=== PATIENT | male | born 1955 | race Caucasian/White ===

== ENCOUNTER → 2016-09-16 | Outpatient (CLI) | payer OTHER ==
[~2016-09-16] MED LIST: AMBIEN10 MG PO; CARDURA4 M1 PO; PROAIR RESPICL90 MCG INH; SILDENAFIL20 MG PO; SINGULAIR PO
== END | disposition home or self-care (01) ==
LOC: CRAD 09:26
DX: K21.9 Gastro-esophageal reflux disease without esophagitis (principal); J18.9 Pneumonia, unspecified organism; J47.9 Bronchiectasis, uncomplicated
CPT/HCPCS: 74230; 92611

== ENCOUNTER → 2016-09-17 | Day surgery (SDC) | payer OTHER ==
--- NOTE | ~2016-09-17 | OR ---
Unit #: [id number] #: [id number] Patient: ISAIAS SHEFFIELD [id number] [address] [place], [place] [address] [id number] O MR#: [id number] NAME: ISAIAS SHEFFIELD ROOM: Date of Procedure: 09/17/2016 Admission Date: 09/17/2016 Surgeon: Jan Rdz M.D. : 1955 Attending Physician: Brooks Rdz Primary Care Physician: Irina Nunez A.P.R.N. OPERATIVE REPORT PROCEDURE PERFORMED Bronchoscopy with bronchoalveolar lavage of the right middle lobe and left lingular lobe. ANESTHESIA Per Anesthesiology. Benzocaine spray used, 2% Xylocaine jelly, 1% Xylocaine. DESCRIPTION OF PROCEDURE Bronchoscope was passed oropharyngeally without difficulty after obtaining informed consent, after anesthesia had given Versed and propofol. The patient tolerated the procedure very well. There were no acute issues. The vocal cords seemed to move symmetrically. There were some changes of chronic irritation on the vocal cords including excessive vascularization; however, they moved to midline and there was no any evidence of any endobronchial lesions. The bronchoscope was then passed in the trachea. Trachea showed signs of chronic bronchitis including a broken about midway down the trachea. There was no other evidence of endobronchial lesions. Bronchoscope was then passed into the right upper, right middle, right lower left upper, left lingular, and left lower lobes. The mucosa showed significant changes of chronic bronchitis with pitting hypertrophy of the rings, hypertrophy of the mucous glands, scattered secretions bilaterally which were thick, viscid, and non-purulent. The bronchoscope was then passed in the lingular lobe approximately 60 mL of sterile non-bacteriostatic saline was introduced at approximately was removed. The fluid was clear, slightly yellowish tinged, and foamy. Bronchoscope was then passed into the middle lobe a 90 mL of sterile non-bacteriostatic saline was introduced at about 30 mL was returned. This was clear fluid, which was foamy. Bronchoscope was then removed. The patient tolerated the procedure well. There were no acute complications. There were no limitations. Cultures will be sent off. The patient should be discharged home on scheduled albuterol and Atrovent inhalers. Thank you very much, please page me at [phone] if you have any questions. Dictated by... Marlen Bustamante/khris Unit #: [id number] #: [id number] Patient: ISAIAS SHEFFIELD TD: 09/17/2016 22:21 JOB #: [id number] OPERATIVE REPORT Page 1 of 1 X Brooks Rdz MD X PROCEDURE OPERATIVE NOTE
[2016-09-17 12:21] LABS: BODY FLUID SOURCE BRONCHIAL LAVAGE
[2016-09-17 12:24] LABS: BODY FLUID APPEARANCE HAZY
[2016-09-17 12:25] LABS: BODY FLUID APPEARANCE HAZY; BODY FLUID SOURCE BRONCHIAL LAVAGE
== END | disposition home or self-care (01) ==
LOC: COPS 08-30 08:30
PROVIDERS: Internal Medicine Pulmonary Disease
DX: J47.9 Bronchiectasis, uncomplicated (principal); J45.909 Unspecified asthma, uncomplicated; Z87.01 Personal history of pneumonia (recurrent); Z79.51 Long term (current) use of inhaled steroids; Z79.899 Other long term (current) drug therapy
CPT/HCPCS: 87070; 87077; 87102; 87107; 87116; 87205; 87206; 87252; 87254; 87305; 88108; 88305; 89051; J0171; J2250